=== PATIENT | female | born 1990 | race Caucasian/White ===

== ENCOUNTER 2020-06-05 16:09 | Outpatient (RCR) | payer OTHER, SELFPAY ==
[2020-05-30 09:48] LABS: Beta HCG Quantitative 280.14 mIU/ML
== END 2020-08-28 23:59 | disposition home or self-care (01) ==
LOC: ANHLAB 16:09
PROVIDERS: PCP Nurse Practitioner Family; Visit Provider Obstetrics & Gynecology
DX: O02.1 Missed abortion (principal); Z3A.00 Weeks of gestation of pregnancy not specified
CPT/HCPCS: 36415; 84702

== ENCOUNTER 2020-06-12 12:33 | Outpatient (CLI) | payer OTHER, SELFPAY ==
--- NOTE | ~2020-06-12 | US_ITS ---
EXAMINATION: US OB <=14 wk fetus w TV DATE: 06/12/2020 13:53 INDICATION: History of spontaneous . TECHNIQUE: Real-time transabdominal and transvaginal pelvic ultrasound was performed. COMPARISON: None. FINDINGS: TRANSABDOMINAL ULTRASOUND: The uterus measures 9.8 x 6.2 x 4.4 cm. TRANSVAGINAL ULTRASOUND: There is an intrauterine gestational sac. A yolk sac is identified. The fet al crown rump length measures 6 mm, which correlates with an estimated gestational age of 6 weeks and 2 day(s) (+/-) 4 day(s). heart motion is identified measuring 110 beats per minute (bpm) by M- mode Doppler. There is a small subchorionic hematoma. The right ovary measures 3.8 x 3.1 x 2.2 cm. Th e left ovary measures 2.4 x 2.8 x 1.5 cm. There is trace free fluid in the pelvis. IMPRESSION: 1. Single living intrauterine gestation with estimated date of delivery of 02/03/2021. 2. Small subchorionic hematoma. Reviewed, dictated and finalized at location B. IMPRESSION: 1. Single living intrauterine gestation with estimated date of delivery of 01/16. 2. Small subchorionic hematoma.
== END 2020-06-12 12:34 | disposition home or self-care (01) ==
PROVIDERS: PCP Nurse Practitioner Family; Visit Provider Obstetrics & Gynecology
DX: O26.21 Pregnancy care for patient with recurrent pregnancy loss, first trimester (principal); O36.8911 Maternal care for other specified fetal problems, first trimester, fetus 1
CPT/HCPCS: 76801; 76817

== ENCOUNTER 2020-06-27 09:42 | Outpatient (CLI) | payer OTHER, SELFPAY ==
--- NOTE | ~2020-06-27 | US_ITS ---
EXAMINATION: US OB <= 14 weeks fetus DATE: 06/27/2020 10:24 INDICATION: Subchorionic hematoma TECHNIQUE: Real-time pelvic transabdominal and transvaginal ultrasound was performed. COMPARISON: 06/12/2020 FINDINGS: The uterus measures 10.4 x 4.5 x 7.9 cm. There is an intrauterine gestational sac. A small subchorionic hematoma has decreased in size measuring up to 1.2 cm, previously 2.7 cm. A yolk sac is identified. heart motion is identified measuring 159 beats per minute (bpm) by M-mode Doppler. The crown rump length measures 1.7 cm , which correlates with an estimated gestational age of 8 weeks and 0 day(s) (+/-) 5 day(s). The left ovary is not visualized however no left adnexal abnormality is seen. The right ovary measure s 3.6 x 2.3 x 2.7 cm. There is normal vascular flow in the right ovary. There is no free fluid in the pelvis. IMPRESSION: 1. Live intrauterine with an estimated gestational age of 8 weeks and 0 day(s) (+/-) 5 day( s) and an estimated delivery date of 02/06/2021. 2. Small subchorionic hematoma with interval decrease in size. Reviewed, dictated and finalized at location B. IMPRESSION: 1. Live intrauterine with an estimated gestational age of 8 weeks and 0 day(s) (+/-) 5 day(s) and an estimated delivery date of 02/06/2021. 2. Small subchorionic hematoma with interval decrease in size.
== END 2020-06-27 09:43 | disposition home or self-care (01) ==
LOC: ANHIMG 09:45
PROVIDERS: PCP Nurse Practitioner Family; Visit Provider Obstetrics & Gynecology
DX: O99.411 Diseases of the circulatory system complicating pregnancy, first trimester (principal); Z3A.08 8 weeks gestation of pregnancy
CPT/HCPCS: 76801

== ENCOUNTER 2020-07-22 13:14 | Outpatient (CLI) | payer OTHER, SELFPAY ==
--- NOTE | ~2020-07-22 | US_ITS ---
EXAMINATION: US OB <= 14 weeks fetus DATE: 07/22/2020 13:56 INDICATION: Subchorionic hematoma follow-up, first trimester TECHNIQUE: Real-time pelvic transabdominal and transvaginal ultrasound was performed. COMPARISON: 06/27/2020 FINDINGS: The uterus measures 14.3 x 6.6 x 9.7 cm. No persistent subchorionic hematoma is identified. heart motion is identified measuring 155 beats per minute (bpm) by M-mode Doppler. The c rown rump length measures 5.8 cm , which correlates with an estimated gestational age of 12 weeks and 2 day(s) (+/-) 8 day(s). The ovaries are not visualized however no adnexal abnormality is seen. There is no free fluid in the pelvis. IMPRESSION: 1. Live intrauterine with an estimated gestational age of 12 weeks and 2 day(s) (+/-) 8 day (s) and an estimated delivery date of 02/01/2021. 2. No persistent subchorionic hematoma identified. Reviewed, dictated and finalized at location A. IMPRESSION: 1. Live intrauterine with an estimated gestational age of 12 weeks an d 2 day(s) (+/-) 8 day(s) and an estimated delivery date of 02/01/2021. 2. No persistent subchorionic hematoma identified.
== END 2020-07-22 13:15 | disposition home or self-care (01) ==
PROVIDERS: PCP Nurse Practitioner Family; Visit Provider Obstetrics & Gynecology Gynecology
DX: O36.8910 Maternal care for other specified fetal problems, first trimester, not applicable or unspecified (principal); Z3A.12 12 weeks gestation of pregnancy
CPT/HCPCS: 76801

== ENCOUNTER 2020-08-01 12:12 | Outpatient (CLI) | payer OTHER, SELFPAY ==
[2020-08-01 12:34] LABS: Basophils Percent Auto 0.3 % (0.2-1.2); Eosinophils Absolute Auto 0.2 K/mm3 (0-0.3); Eosinophils Percent Auto 2.7 % (0-4.4); Hematocrit 32.9 % (37.0-47.0); Hemoglobin 11.6 g/dL (12.0-15.0); Immature Granulocyte Absolute 0.03 K/mm3 (0.00-0.031); Immature Granulocyte Percent A 0.5 % (0-0.5); Lymphocytes Percent Auto 27.3 % (18.3-44.2); Mean Corpuscular HGB Conc 35.3 g/dl (32-36); Mean Corpuscular Hemoglobin 30.1 pg (26-34); Mean Corpuscular Volume 85.5 fl (80-100); Mean Platelet Volume 10.3 fl (7.4-10.4); Monocytes Absolute Auto 0.4 K/mm3 (0.1-0.6); Monocytes Percent Auto 6.1 % (2.6-8.5); Neutrophils Absolute Auto 4.2 K/mm3 (1.3-6.7); Neutrophils Percent Auto 63.1 % (45.5-73.1); Platelet Count Result 232 k/mm3 (150-375); Red Blood Count 3.85 M/mm3 (4.2-5.4); Red Cell Distribution Width 11.9 % (11.5-14.5); White Blood Count 6.6 K/mm3 (4.5-10.0)
[2020-08-01 13:28] LABS: HIV 1/2 Ab P24 Ag Result Negative (Negative)
[2020-08-01 13:34] LABS: Vitamin D 25 Hydroxy 38.9 ng/mL
[2020-08-01 13:49] LABS: Hepatitis B Surface Antigen Negative (Negative); Rubella IgG Antibody 18.6 IU/ML
[2020-08-04 08:22] LABS: Rapid Plasma Reagin Non-Reactive (NonReactive)
== END 2020-08-01 12:13 | disposition home or self-care (01) ==
PROVIDERS: PCP Nurse Practitioner Family; Visit Provider Obstetrics & Gynecology
DX: Z36.9 Encounter for antenatal screening, unspecified (principal)
CPT/HCPCS: 36415; 82306; 85025; 86592; 86703; 86762; 86850; 86900; 86901; 87340; G0432

== ENCOUNTER 2020-09-04 14:04 | Outpatient (CLI) | payer OTHER, SELFPAY ==
--- NOTE | ~2020-09-04 | US_ITS ---
EXAMINATION: US OB /maternal detail DATE: 09/04/2020 15:02 INDICATION: Assess anatomy during second trimester . TECHNIQUE: Multiple obstetric sonographic images performed. FINDINGS: There is a single living fetus in vertex presentation. The placenta is posterior and not low-lying w ith caudal margin 3.8 cm from the internal cervical os. Amniotic fluid volume is subjectively normal. heart rate of 141 beats per minute. The following anatomy was identified as normal: Ventricles, choroid plexus, falx and cava septum pellucidum Cerebellum and cisterna magna Nuchal fold Thoracic and lumbar spine. Cervical spine is suboptimally visualized. Normal left ventricular outflow tract view. The four-chamber, three-vessel and right ventricular outf low tract views are also suboptimal. Diaphragm Stomach Kidneys Bladder 3 vessel cord and cord insertion Bilateral upper and lower extremities including hands and feet The following biometric data were obtained: BPD: 4.2 cm -> 18 weeks 5 days Head circumference: 15.5 cm -> 18 weeks 3 days Abdominal circumference: 13.1 cm -> 18 weeks 4 days Femur length: 2.8 cm -> 18 weeks 5 days These measurements are concordant. Head circumference to abdominal circumference ratio: 1.19 (normal range 1.09-1.27). Estimated weight: 250 g (+/-) 37 g. or 9 oz. (+/-) 1 oz. IMPRESSION: 1. Single living fetus with vertex presentation with heart rate of 141 bpm. 2. Gestational age by ultrasound of 18 weeks 4 day(s) (+/-) 1 week 2 day(s) with ultrasound estimat ed date of delivery (KENN) of 02/01/2021. Estimated weight is 68th percentile by Hadlock criteria when 02/03/2021 is used as the KENN. Please correlate with clinical information or earlier ultrasounds for most accurate KENN. 3. Suboptimal cervical spine and heart views in an otherwise normal anatomic survey. Reviewed, dictated and finalized at [facility]. R SERVICES TEAM LEADER IMPRESSION: 1. Single living fetus with vertex presentation with heart rate of 141 b pm. 2. Gestational age by ultrasound of 18 weeks 4 day(s) (+/-) 1 week 2 day(s) w ith ultrasound estimated date of delivery (KENN) of 02/01/2021. Estimated w eight is 68th percentile by Hadlock criteria when 02/03/2021 is used as the KENN. Please correlate with clinical information or earlier ultrasounds for most acc urate KENN. 3. Suboptimal cervical spine and heart views in an otherwise normal anato david survey.
== END 2020-09-04 14:05 | disposition home or self-care (01) ==
PROVIDERS: PCP Nurse Practitioner Family; Visit Provider Obstetrics & Gynecology
DX: Z34.92 Encounter for supervision of normal pregnancy, unspecified, second trimester (principal); Z3A.18 18 weeks gestation of pregnancy
CPT/HCPCS: 76805

== ENCOUNTER 2020-10-03 10:20 | Outpatient (CLI) | payer OTHER, SELFPAY ==
--- NOTE | ~2020-10-03 | US_ITS ---
EXAMINATION: US OB follow up EXAM DATE: 10/03/2020 11:02 INDICATION: Anatomy follow-up. 2nd trimester. TECHNIQUE: Pelvic obstetrical transabdominal sonogram was performed by a technologist. There are mu ltiple grayscale and Doppler images available for interpretation. Comparison is made to prior examina tion from 09/04/2020. FINDINGS: There is a single fetus identified in vertex presentation with a heart rate of 178 beats pe r minute. The placenta is located in the posterior position. There is no sonographic evidence of ret roplacental hemorrhage identified. The amniotic fluid index is 9.7 centimeters, lower limits of emely l (The 5th -- 95th percentile range is 9.7-21.6 for 22 weeks gestation age.) BIOMETRIC DATA: Biparietal diameter (BPD): 5.6cm ----------------> 23 weeks 0 days. Head circumference (HC): 20.3 cm cm ----------------> 22 weeks 3 days. Abdominal circumference (AC): 17.7 cm ----------> 22 weeks 4 days. Femur length (FL): 3.9 cm --------------------------> 22 weeks 4 days. These measurements are concordant. HC/AC ratio is 1.15 (The 5th -- 95th percentile range is 1.05-1.22. Estimated weight is 516 g +/- 77 g. This is the 51st percentile when the currently reported cl inical gestation age 22 weeks 3 days, clinical estimated date of delivery (KENN-OPE) 02/03 is used. Fet al estimated gestational age based on measurements from this exam is 22 weeks 5 days, with an estimat ed date of delivery (KENN-AUA) 02/01. The heart and spine are sonographically normal. This completes the anatomic survey. IMPRESSION: 1. Single fetus in vertex presentation with heart rate 178 beats per minute. 2. Estimated weight of 516 grams, 51st percentile using the currently reported clinical gestat ion age of 22 weeks 3 days, KENN(OPE) 02/03. 3. Amniotic fluid index 9.7 cm, lower limits of normal. 4. Sonographically normal heart and spine. Reviewed, dictated and finalized at location A. ROAD SHOP INSPECTOR IMPRESSION: 1. Single fetus in vertex presentation with heart rate 178 beats per minute. 2. Estimated weight of 516 grams, 51st percentile using the currently re ported clinical gestation age of 22 weeks 3 days, KENN(OPE) 02/03. 3. Amniotic fluid index 9.7 cm, lower limits of normal. 4. Sonographically normal heart and spine.
== END 2020-10-03 10:21 | disposition home or self-care (01) ==
PROVIDERS: PCP Nurse Practitioner Family; Visit Provider Obstetrics & Gynecology
DX: Z34.92 Encounter for supervision of normal pregnancy, unspecified, second trimester (principal); Z3A.22 22 weeks gestation of pregnancy
CPT/HCPCS: 76816

== ENCOUNTER 2020-10-23 10:41 | Outpatient (CLI) | payer OTHER, SELFPAY ==
--- NOTE | ~2020-10-23 | US_ITS ---
EXAMINATION: US OB follow up EXAM DATE: 10/23/2020 11:10 INDICATION: Decreased lower limit of amniotic fluid . 2nd trimester. TECHNIQUE: Pelvic obstetrical transabdominal sonogram was performed by a technologist. There are mu ltiple grayscale and Doppler images available for interpretation. Comparison is made to prior examina tion from 10/03/2020. FINDINGS: There is a single fetus identified in breech presentation with a heart rate of 147 beats pe r minute. The placenta is located in the posterior position. There is no sonographic evidence of ret roplacental hemorrhage identified. The amniotic fluid index is 14.8 centimeters, which is normal. BIOMETRIC DATA: Biparietal diameter (BPD): 6.4 cm ----------------> 26 weeks 0 days. Head circumference (HC): 22.1 cm ----------------> 24 weeks 1 day. Abdominal circumference (AC): 20.1 cm ----------> 24 weeks 5 days. Femur length (FL): 4.2 cm --------------------------> 23 weeks 5 days. These measurements are discordant, with FL/BPD low at 65.6 (The 5th -- 95th percentile range is 71.0- 87.0). HC/AC ratio is 1.10 (The 5th -- 95th percentile range is 1.04-1.22. Estimated weight is 688 g +/- 103 g. This is the 10th percentile when the currently reported c linical gestation age 25 weeks 2 days, clinical estimated date of delivery (KENN-OPE) 02/03 is used. Fe arron estimated gestational age based on measurements from this exam is 24 weeks 5 days, with an estima maria c date of delivery (KENN-AUA) 02/07. IMPRESSION: 1. Single fetus in breech presentation with heart rate 147 beats per minute. 2. Estimated weight of 688 grams, 10th percentile using the currently reported clinical gestat ion age of 25 weeks 2 days, KENN(OPE) 02/03/2021. 3. Discordant low FL/BPD ratio. 4. Normal JEFFY 14.8 cm. Reviewed, dictated and finalized at location A. DEGRADATION ANALYST IMPRESSION: 1. Single fetus in breech presentation with heart rate 147 beats per minute. 2. Estimated weight of 688 grams, 10th percentile using the currently re ported clinical gestation age of 25 weeks 2 days, KENN(OPE) 02/03/2021. 3. Discordant low FL/BPD ratio. 4. Normal JEFFY 14.8 cm.
== END 2020-10-23 10:42 | disposition home or self-care (01) ==
PROVIDERS: PCP Nurse Practitioner Family; Visit Provider Obstetrics & Gynecology
DX: O41.00X0 Oligohydramnios, unspecified trimester, not applicable or unspecified (principal); Z3A.25 25 weeks gestation of pregnancy
CPT/HCPCS: 76816

== ENCOUNTER 2020-12-06 09:12 | Outpatient (RCR) | payer OTHER, SELFPAY ==
[2020-12-04 10:08] LABS: Hematocrit 33.6 % (37.0-47.0); Hemoglobin 11.4 g/dL (12.0-15.0)
[2020-12-04 10:20] LABS: Glucose 1 Hour PP 50gm Dose 133 mg/dL
[2020-12-04 11:02] LABS: HIV 1/2 Ab P24 Ag Result Negative (Negative)
[2020-12-04 11:03] LABS: Vitamin D 25 Hydroxy 41.6 ng/mL
[2020-12-06] MEDS: RHO(D) IMMUNE GLOBULIN 300 MCG SYRINGE IM (15:20)
== END 2020-12-06 09:13 | disposition home or self-care (01) ==
LOC: ANHLAB 09:12
PROVIDERS: PCP Nurse Practitioner Family; Visit Provider Obstetrics & Gynecology
DX: Z29.13 Encounter for prophylactic Rho(D) immune globulin (principal); Z11.4 Encounter for screening for human immunodeficiency virus [HIV]; O36.0920 Maternal care for other rhesus isoimmunization, second trimester, not applicable or unspecified; Z3A.00 Weeks of gestation of pregnancy not specified
CPT/HCPCS: 36415; 82306; 82947; 85014; 85018; 85461; 86703; 90384; 96372; G0432; J2790

== ENCOUNTER 2021-01-14 16:15 | Outpatient (CLI) | payer OTHER, SELFPAY ==
--- NOTE | ~2021-01-14 | US_ITS ---
EXAMINATION: US OB follow up DATE: 01/14/2021 16:58 INDICATION: Large for gestational age. TECHNIQUE: Real-time ultrasound of the pelvis was performed. COMPARISON: Ultrasound 10/23/2020, 06/12/2020 FINDINGS: There is a single living fetus in vertex presentation. The placenta is fundal. heart rate is 1 68 beats per minute (bpm). The amniotic fluid index is 10.3 cm, which is normal. The following biometric data were obtained: Biparietal diameter (BPD): 9.1 cm; head circumference (HC): 33.8 cm; abdominal circumference (AC): 32 .9 cm; femur length (FL): 7.3 cm. These measurements are concordant. Estimated weight is 3137 g +/- 471 g, which correlates with 58th percentile when 02/03/21 is use d as estimated date of delivery. As single measurements, these parameters are each equal to the following estimated gestational ages w ith ranges of +/- 2 standard deviations: BPD: 36 weeks 5 days (33 weeks 4 days - 40 weeks 0 days). HC: 38 weeks 5 days (36 weeks 0 days - 41 weeks 3 days). AC: 36 weeks 6 days (33 weeks 6 days - 39 weeks 6 days). FL: 37 weeks 3 days (34 weeks 2 days - 40 weeks 3 days). estimated gestational age based solely on measurements from this exam is 37 weeks 3 days +/- 2 weeks 4 days. IMPRESSION: 1. Single living fetus in vertex presentation. 2. Estimated weight is 3137 g +/- 471 g, which correlates with 58th percentile when 02/03/21 is used as estimated date of delivery. This date was set by ultrasound on 06/12/20. Reviewed, dictated and finalized at location A. IMPRESSION: 1. Single living fetus in vertex presentation. 2. Estimated weight is 3137 g +/- 471 g, which correlates with 58th perc entile when 02/03/21 is used as estimated date of delivery. This date was set by ultrasound on 06/12/20.
== END 2021-01-14 16:16 | disposition home or self-care (01) ==
PROVIDERS: PCP Nurse Practitioner Family; Visit Provider Obstetrics & Gynecology
DX: O36.63X1 Maternal care for excessive fetal growth, third trimester, fetus 1 (principal); Z3A.37 37 weeks gestation of pregnancy
CPT/HCPCS: 76816

== ENCOUNTER 2021-01-25 22:49 | Inpatient (IN) | payer OTHER, SELFPAY ==
[2021-01-25] MEDS: LACTATED RINGERS 1,000 ML 125 ML IV CONT (23:51)
[2021-01-25 23:54] VITALS: BP 138/110; PULSE 82
[2021-01-26] VITALS (45 sets, daily range): BP systolic 101–180; BP diastolic 57–105; PULSE 76–149; RESP 16–22; TEMP 36.3–36.9; O2SAT 96–100; BMI 32.1
[2021-01-26 00:02] LABS: Basophils Percent Auto 0.2 % (0.2-1.2); Eosinophils Absolute Auto 0.1 K/mm3 (0-0.3); Eosinophils Percent Auto 0.7 % (0-4.4); Hematocrit 35.7 % (37.0-47.0); Immature Granulocyte Absolute 0.04 K/mm3 (0.00-0.031); Immature Granulocyte Percent A 0.5 % (0-0.5); Lymphocytes Absolute Auto 2.11 K/mm3 (0.9-3.2); Lymphocytes Percent Auto 24.5 % (18.3-44.2); Mean Corpuscular HGB Conc 33.6 g/dl (32-36); Mean Corpuscular Hemoglobin 28.9 pg (26-34); Mean Platelet Volume 11.1 fl (7.4-10.4); Monocytes Absolute Auto 0.6 K/mm3 (0.1-0.6); Monocytes Percent Auto 7.4 % (2.6-8.5); Neutrophils Absolute Auto 5.8 K/mm3 (1.3-6.7); Neutrophils Percent Auto 66.7 % (45.5-73.1); Platelet Count Result 208 k/mm3 (150-375); Red Blood Count 4.15 M/mm3 (4.2-5.4); Red Cell Distribution Width 13.1 % (11.5-14.5); White Blood Count 8.6 K/mm3 (4.5-10.0)
--- NOTE | 2021-01-26 00:20 | WPDANESEPPF ---
Anes - Initial Pre Proc Eval Procedure: labor epidural Date/Time: 01/26/21 00:20 Surgeon: Holden Santiago MD Pre Op Diagnosis: labor pain Pre Op Diagnosis: CTX Patient Data Age: 30 Gender: F Height: Weight: Last Vital Signs Pulse 89 01/26/21 00:16 BP 142/80 H 01/26/21 00:16 Pulse Ox 98 01/26/21 00:16 Allergies Allergy/AdvReac Type Severity Reaction Status Date / Time No Known Allergies Allergy Verified 10/21/18 13:37 Laboratory Tests 01/25/21 01/25/21 23:53 23:53 WBC 8.6 K/mm3 K/mm3 (4.5-10.0) RBC 4.15 M/mm3 L M/mm3 (4.2-5.4) Hgb 12.0 g/dL g/dL (12.0-15.0) Hct 35.7 % L % (37.0-47.0) MCV 86.0 fl fl (80-100) MCH 28.9 pg pg (26-34) MCHC 33.6 g/dl g/dl (32-36) RDW 13.1 % % (11.5-14.5) Plt Count 208 k/mm3 k/mm3 (150-375) MPV 11.1 fl H fl (7.4-10.4) Immature Gran % (Auto) 0.5 % % (0-0.5) Neut % (Auto) 66.7 % % (45.5-73.1) Lymph % (Auto) 24.5 % % (18.3-44.2) Hernando % (Auto) 7.4 % % (2.6-8.5) Eos % (Auto) 0.7 % % (0-4.4) Baso % (Auto) 0.2 % % (0.2-1.2) Lymph # (Auto) 2.11 K/mm3 K/mm3 (0.9-3.2) Hernando # (Auto) 0.6 K/mm3 K/mm3 (0.1-0.6) Eos # (Auto) 0.1 K/mm3 K/mm3 (0-0.3) Baso # (Auto) 0.0 K/mm3 K/mm3 (0.0-0.1) Abs Immat Gran (auto) 0.04 K/mm3 H K/mm3 (0.00-0.031) Absolute Neuts (auto) 5.8 K/mm3 K/mm3 (1.3-6.7) Absolute Nucleated RBC 0.0 K/mm3 K/mm3 (0.0-0.012) Nucleated RBC % 0.0 % % (0.0-0.2) RPR Pending Patient hx anesthesia problems: none Family hx anesthesia problems: none Anes - Eval Final PreProcedure Day of Procedure 01/26/21 00:20 Patient weight: obese ASA classification: II Anesthesia type and monitoring: regional epidural Informed Consent: The patient's anesthetic plan and its attendant risks and benefits were discussed with the patient/family/POA. Questions were solicited and answers provided to the satisfaction of the patient/family/POA.
[2021-01-26] MEDS: LACTATED RINGERS 1,000 ML 125 ML IV CONT (00:54)
[2021-01-26] MEDS: OXYTOCIN 30 UNITS/NS 500 ML 30 UNITS/500 ML BAG 999 UNITS IV CONT (01:23)
--- NOTE | 2021-01-26 01:38 | P.HP_ITS ---
Obstetrics - Admit Note Admission Note: Complete and pushing. record reviewed. No pertinent additions to the history and/or any subsequent changes in the physical findings that are not consistent with the expected course of the were found. Additions to the history and/or subsequent changes in the physical findings foll ow. None.
--- NOTE | 2021-01-26 01:40 | PM.OBPRVD ---
OB - Delivery Note Procedure Delivery date: 01/26/21 Procedure: Intrapartal events: Acceleration and Deceleration Induction method: none Delivery monitor: external FHT and external uterine Route of delivery: Laceration Description: Perineal - 2nd Degree Delivery repair: vicryl Specimen: No Quantitative Blood Loss (ml): 130 Anesthesia type: Epidural Disposition: floor Baby Date of : 01/26/21 Time of : 01:19 Weeks of gestation at delivery: 38 gender: Female Weight (pounds): 7 Weight (ounces): 10 presentation: vertex position: Left Occiput Anterior Placenta delivery description: Spontaneous cord vessel description: 3 Vessels, Nuchal Cord (x2), Tight and Clamped/Cut score one minute: 4 score five minutes: 8 Narrative: nuchal x2 tight nonreducible delivered through reduced at peritinuem.
[2021-01-26] MEDS: OXYTOCIN 10 UNITS/ML VIAL (02:10)
[2021-01-26] MEDS: BENZOCAINE 20% AER SPR (*SP) 56 GM CAN 1 SPRAY TOPICAL (03:43)
[2021-01-26] MEDS: WITCH HAZEL 40 PADS 1 PAD TOPICAL (03:43)
[2021-01-26] MEDS: IBUPROFEN 600 MG TABLET PO ×3 (05:34→21:00)
[2021-01-26 07:44] LABS: Rapid Plasma Reagin Non-Reactive (NonReactive)
[2021-01-26] MEDS: MULTIVIT/MIN/PREN/FOL AC/IRON TABLET 1 TAB PO (09:10)
--- NOTE | 2021-01-26 16:29 | PC.NURSE ---
[id number] visited with mother; she reports baby fed about 1 hour ago. Had questions about latch on. She reports nipple pain throughout each feeding with her first baby, and was the reason she stopped breast feeding; desires for this experience to be different. Baby sleeping now. Mother encouraged to call for nurse assistance at next feeding to evaluate baby's latch and assist as needed. Mother reports she is feeling pinchy with baby's nursing, and nipple has a line across after the feeding. Nurse reviewed with her positioning, use of c-hold and nose to nipple latch on technique, waiting for infant to open her mouth wide so that her tongue is down. Also suggested to possibly use football position instead of cross-cradle. Nurse explained to mother how to gently adjust to deeper latch while on the breast to help her latch be deeper. Mother attentive, voiced understanding. Again, mother encouraged to call for nurse to assist at next feeding, and then f/u with LC tomorrow. Mother agreed.
[2021-01-27 00:28] VITALS: BP 110/66; PULSE 76; RESP 16; TEMP 36.6; O2SAT 98
[2021-01-27 03:52] VITALS: BP 107/75; PULSE 78; RESP 18; TEMP 36.6; O2SAT 97
--- NOTE | 2021-01-27 07:34 | WPDANLDPN2 ---
Anes-Prog Note L&D Date/Time: 01/27/21 07:34 Comfortable throughout: labor and delivery Neuraxial method: epidural Epidural/Spinal procedure site: clean & non-tender Neuro status: Neuro function grossly intact. Cardiovascular status: normal Respiratory status: normal Airway patency: baseline Mental status: baseline Post-Op hydration status: normal Vital Signs: Last Vital Signs Temp 36.6 C 01/27/21 03:52 Pulse 78 01/27/21 03:52 Resp 18 01/27/21 03:52 BP 107/75 01/27/21 03:52 Pulse Ox 97 01/27/21 03:52 Pain score (VAS): 10/26 Post-procedural complaints: none Patient feedback: Patient satisfied with anesthetic care.
--- NOTE | 2021-01-27 07:41 | PM.OBPNVD ---
OB - PN: Subj Subjective Date/time seen: 01/27/21 07:41 Patient comments: no complaints and pain well controlled baby status: doing well OB - PN: Obj Data Labs CBC & Chem 7: 01/25/21 23:53 Labs: Laboratory Results - last 24 hr 01/25/21 01/27/21 23:53 05:50 RPR Non-reactive Blood Type B Negative Antibody Screen TNP Screen Negative Baby's Blood Type Ab pos Baby's ISSAC Positive Doses of RhIg Required 1 OB - PN A/P Plan day: 1 Plan: routine care, discharge home and other (unsure bc plan) Time Spent With Patient Time: Total time spent is greater than 50% in coordination of care (as documented) at patient's floor/unit and/or counseling patient: Exam : Bimanual exam- vagina & uterus: other (Uterus firm, nt @U)
--- NOTE | 2021-01-27 08:20 | PC.NURSE ---
Consult with pt., mother reports she has pain with latch and during feeding. Mother discontinued first child due to nipple discomfort. Requested mother call out next feeding for assist. Nipple care reviewed of lanolin after each feeding and warm compresses several times per day.
[2021-01-27 08:50] VITALS: BP 107/65; PULSE 75; RESP 16; TEMP 36.9; O2SAT 98
--- NOTE | 2021-01-27 09:15 | PC.NURSE ---
Mother called out for assist with feeding due to pain with feeding. Both nipples are reddened skin is intact. Reviewed infant feeding cues, frequencies, duration of feedings, feeding elimination flow sheet, and signs of adequate intake. Demonstrated stimulation techniques to wake for feeding. Assisted with to breast. Reviewed positioning/alignment in cross cradle, holding breast in U hold and guided asymmetrical latch on. was able to latch correctly with first attempt. nursed eagerly, with steady draws and frequent swallowing noted. Reviewed signs of a correct latch, effective nursing and suck swallow ratio. Mother quickly reported she could feel was latched more deeply than previous feeding. Suggested mother stimulate while feeding to keep awake and nursing effectively to stimulate supply and assist with maintaining deep latch. Demonstrated how to adjust latch more deeply while feeding. Mother is feeding as required and waking infant to feed if needed. has had at least 8 effective feedings in the past 24 hours, and is currently meeting outcomes for weight, output, jaundice and feeding frequencies. Mother states she feels confident to continue effective at home. Reviewed transition to breast milk, signs of adequate intake, and engorgement/relief. Instructed to call ICP if intake/output less than required. Reviewed regular medications mother is taking. Information provided per Keisha. Reviewed community resources on the [facility] website and in the Mom/Baby guide. Information on outpatient services provided. Mother has no further questions at this time.
[2021-01-27 10:03] LABS: Hematocrit 30.9 % (37.0-47.0); Hemoglobin 10.3 g/dL (12.0-15.0)
[2021-01-27] MEDS: MULTIVIT/MIN/PREN/FOL AC/IRON TABLET 1 TAB PO (10:03)
[2021-01-27] MEDS: IBUPROFEN 600 MG TABLET PO (10:03)
--- NOTE | 2021-01-27 11:00 | PC.NURSE ---
Patient instructed on viewing the discharge video Mother & Baby Care, The First Two Weeks . Patient was given the opportunity and encouraged to ask questions. Patient verbalized understanding of information shared and has been given the mother/baby guide for home reference.
[2021-01-27] MEDS: RHO(D) IMMUNE GLOBULIN 300 MCG/2 ML SYRINGE IM (11:29)
[2021-01-30 11:24] VITALS: BP 115/76; PULSE 78; RESP 18; TEMP 36.5; O2SAT 100
--- NOTE | 2021-02-23 08:14 | PM.OBDSVD ---
DS: Admitting Diagnosis Admitting Diagnosis Admitting Diagnosis: labor DS: Discharge Diagnosis Discharge Diagnosis (1) (normal spontaneous vaginal delivery): Code(s): O80 - Encounter for full-term uncomplicated delivery Status: Acute OB - DS: Summary OB Procedures : Ultrasound OB Procedures Intrapartum: Spontaneous Vag Delivery OB Procedures: : None Peripartum Data Infant Delivery Method: Natural Vaginal Laceration Description: Perineal - 2nd Degree complications: none Time Spent with Patient Time attestation: Total time spent providing and/or coordinating discharge services: Discharge Plan Discharge Attending physician on discharge: Holden Santiago Consulting providers: Nathanael Stevenson Discharging Clinician: Abeba Hart Anticipated Discharge Date/Time: 01/27/21 07:42 Patient Disposition: Home, Self-Care Activity: may shower and pelvic rest Diet: regular Discharge Instructions: Education: Mom and Baby Guide and Preeclampsia Handout Given to: Mother Follow-Up: Call your delivering provider's office for an appointment to be seen in: 6 Weeks Mom and baby should come to the [facility] for the follow-up appointment. Appointment Date/Time: January 30, 2021 at 11:00 am What to expect at your follow-up visit: Physical Assessment Call [phone] if you are unable to keep your appointment time. BREAST CARE: * Wear a snug supportive bra. * For engorgement discomfort: Breast Feeding: * Apply warm moist washcloths * Express milk as needed to relieve engorgement * Wear loose clothing * For sore nipples: * Identify correct latch-on * Apply warm moist washcloths before and after nursing * Air dry nipples after nursing * May apply Lansinoh cream to nipples EPISIOTOMY/PERINEAL CARE: * Until bleeding stops, use your arabella bottle after urinating * Change your pad frequently throughout the day * You may take sitz baths several times a day (fill your bathtub with warm water and soak for 20 minutes.) Do NOT bathe in the water * No tub baths until seen by your physician - You may shower ACTIVITY: * Rest as much as possible. * Do not exercise or lift anything heavier than your baby (such as laundry or other children.) * Avoid stairs or driving as much as possible. * Do not put anything into the vagina. No douching, tampons, or sexual activity until seen by physician. NOTIFY PHYSICIAN IF YOU HAVE ANY QUESTIONS OR IF ANY OF THE FOLLOWING SYMPTOMS OCCUR: * If your episiotomy becomes red, swollen, or more painful than what you have experienced in the hospital. * If your vaginal bleeding becomes foul smelling. * If your vaginal bleeding becomes more heavy than a period or if your bleeding changes from pink to bright red. However, you may pass an occasional walnut-sized clot once or twice for the first week . * If you experience a sharp, shooting pain in you calves. * If you discover a hard, reddened area on your breast or if you experience flu-like symptoms. DIET: * Eat regular, well-balanced meals. * Drink plenty of fluids daily. If , drink to thirst. Stand Alone Forms: General Discharge Information Follow-up/Referrals: Holden Santiago MD [Physician] - 6 Weeks Discharge Medications: Continued montelukast 10 mg tablet 10 mg PO DAILY RF: 0 ergocalciferol (vitamin D2) 1,250 mcg (50,000 unit) capsule 1,250 mcg PO DAILY RF: 0 400 mcg Tablet,Chewable 1 tablet PO DAILY RF: 0 Date of admission: 01/25/21 22:49 Primary Care Provider: Chelly,Eugenie Ryder Admitting Provider: Holden Santiago Attending physician on admission: Abeba Hart Condition: Stable
== END 2021-01-27 12:15 | disposition home or self-care (01) | DRG 560 ==
LOC: ANHLDR 23:57 → ANHOB2 01-27 07:43 → ANHLDR 01-28 13:50 → ANHOB2 01-28 13:50
PROVIDERS: Admitting Provider Obstetrics & Gynecology; PCP Nurse Practitioner Family; Visit Provider Obstetrics & Gynecology Gynecology
DX: O69.1XX0 Labor and delivery complicated by cord around neck, with compression, not applicable or unspecified (principal); O70.1 Second degree perineal laceration during delivery; Z3A.38 38 weeks gestation of pregnancy; Z37.0 Single live birth
CPT/HCPCS: 36415; 85014; 85018; 85025; 85461; 86592; 86850; 86880; 86900; 86901; 86902; 90384; A9270; J2590; J2790; J2795; J7120

== ENCOUNTER 2023-04-14 11:02 | Outpatient (RCR) | payer OTHER, SELFPAY ==
[2023-04-12 12:39] LABS: Beta HCG Quantitative 140.48 mIU/ML
[2023-04-14 13:00] LABS: Beta HCG Quantitative 256.19 mIU/ML
== END 2023-07-11 23:59 | disposition home or self-care (01) ==
LOC: ANHLAB 11:02
PROVIDERS: PCP Nurse Practitioner Family; Visit Provider Obstetrics & Gynecology Gynecology
DX: O26.21 Pregnancy care for patient with recurrent pregnancy loss, first trimester (principal); Z3A.00 Weeks of gestation of pregnancy not specified
CPT/HCPCS: 36415; 84702

== ENCOUNTER 2023-04-18 10:37 | Outpatient (CLI) | payer OTHER, SELFPAY | END 2023-04-18 10:38 | disposition home or self-care (01) | LOC: ANHLAB 10:39 | PROVIDERS: PCP Nurse Practitioner Family; Visit Provider Obstetrics & Gynecology Gynecology | DX: O26.21 Pregnancy care for patient with recurrent pregnancy loss, first trimester (principal); Z3A.00 Weeks of gestation of pregnancy not specified | CPT/HCPCS: 36415; 84702 ==

== ENCOUNTER 2023-04-25 10:35 | Outpatient (CLI) | payer OTHER, SELFPAY ==
--- NOTE | ~2023-04-25 | US_ITS ---
Pelvic ultrasound. Clinical History: First trimester , spotting, uncertain dates Technique: Realtime transabdominal and transvaginal scanning of the pelvis was performed. Color flow Doppler and Doppler spectral analysis were performed. Findings: The uterus is anteverted. The endometrial stripe has a thickness of 17 mm. There is a poss ible early intrauterine gestational sac, with average sac diameter of 4 mm. No pole or yolk sac seen.. The right ovary measures 3.6 x 1.7 x 2.6 cm. No significant right ovarian or adnexal mass is seen. The left ovary measures 3.9 x 1.9 x 1.6 cm. No significant left ovarian or adnexal mass is seen. There is no evidence of free fluid in the cul de sac. Impression: Possible early intrauterine gestational sac with average sac diameter 4 mm. No pole or yolk sac seen. Remainder of the endometrial stripe is somewhat thickened and heterogeneous. Spontaneous abort ion/ in progress is not excluded. Clinical correlation required. Continued follow-up with ser ial beta hCG, and repeat ultrasound as warranted, is advised. Reviewed, dictated and finalized at location . Impression: Possible early intrauterine gestational sac with average sac diameter 4 mm. No pole or yolk sac seen. Remainder of the endometrial stripe is somewhat th ickened and heterogeneous. Spontaneous / in progress is not exc luded. Clinical correlation required. Continued follow-up with serial beta hCG, and repeat ultrasound as warranted, is advised.
[2023-04-27] MEDS: RHO(D) IMMUNE GLOBULIN 300 MCG/2 ML SYRINGE IM (11:15)
== END 2023-04-25 10:36 | disposition home or self-care (01) ==
PROVIDERS: PCP Nurse Practitioner Family; Visit Provider Obstetrics & Gynecology Gynecology
DX: O26.851 Spotting complicating pregnancy, first trimester (principal)
CPT/HCPCS: 36415; 76801; 76817; 84702; 85461; 86850; 86900; 86901; 90384; 96372; J2790

== ENCOUNTER 2023-06-24 08:22 | Outpatient (RCR) | payer OTHER, SELFPAY ==
[2023-04-27 11:41] LABS: Beta HCG Quantitative 223.02 mIU/ML
[2023-05-04 12:39] LABS: Beta HCG Quantitative 16.49 mIU/ML
[2023-06-06 09:44] LABS: Beta HCG Quantitative < 2.39 mIU/ML
== END 2023-07-24 23:59 | disposition home or self-care (01) ==
LOC: ANHLAB 08:22
PROVIDERS: PCP Nurse Practitioner Family; Visit Provider Obstetrics & Gynecology Gynecology
DX: O26.851 Spotting complicating pregnancy, first trimester (principal); Z3A.00 Weeks of gestation of pregnancy not specified
CPT/HCPCS: 36415; 84702

== ENCOUNTER 2023-08-03 06:41 | Outpatient (RCR) | payer OTHER, SELFPAY ==
--- NOTE | ~2023-08-03 | US_ITS ---
Pelvic ultrasound. Clinical History: First trimester , vaginal spotting Technique: Realtime transabdominal and transvaginal scanning of the pelvis was performed. Color flow Doppler and Doppler spectral analysis were performed. Findings: The uterus is anteverted, and contains diamniotic, dichorionic twin intrauterine gestation. Fetus a demonstrates crown-rump length of 4.2 cm, consistent with estimated gestational age of 11 we eks 1 day. heart rate is 167 bpm. Fetus B demonstrates crown-rump length of 4.3 cm, consistent with estimated gestational age of 11 weeks 1 day, with heart rate of 157 bpm.. Neither ovary visualized. No adnexal mass seen. There is no evidence of free fluid in the cul de sac. Impression: Live twin intrauterine gestations, as detailed above, with estimated gestational ages in the range of 11 weeks 1 day. Reviewed, dictated and finalized at [facility]. Impression: Live twin intrauterine gestations, as detailed above, with estimated gestationa l ages in the range of 11 weeks 1 day. Impression: Live twin intrauterine gestations, as detailed above, with estimated gestationa l ages in the range of 11 weeks 1 day.
[2023-08-03] MEDS: RHO(D) IMMUNE GLOBULIN 300 MCG/2 ML SYRINGE IM (11:14)
== END 2023-08-03 06:42 | disposition home or self-care (01) ==
LOC: ANHIMG 06:41
PROVIDERS: PCP Nurse Practitioner Family; Visit Provider Obstetrics & Gynecology Gynecology
DX: Z29.13 Encounter for prophylactic Rho(D) immune globulin (principal); O26.851 Spotting complicating pregnancy, first trimester; O30.041 Twin pregnancy, dichorionic/diamniotic, first trimester; O26.21 Pregnancy care for patient with recurrent pregnancy loss, first trimester; O36.0110 Maternal care for anti-D [Rh] antibodies, first trimester, not applicable or unspecified; Z3A.00 Weeks of gestation of pregnancy not specified
CPT/HCPCS: 36415; 76801; 76802; 85461; 86850; 86880; 86900; 86901; 86902; 90384; 96372; J2790

== ENCOUNTER 2023-09-06 09:50 | Outpatient (CLI) | payer OTHER, SELFPAY ==
[2023-09-06 10:32] LABS: Basophils Percent Auto 0.5 % (0.2-1.2); Eosinophils Absolute Auto 0.1 K/mm3 (0-0.3); Eosinophils Percent Auto 2.2 % (0-4.4); Hematocrit 33.7 % (37.0-47.0); Hemoglobin 11.2 g/dL (12.0-15.0); Immature Granulocyte Absolute 0.04 K/mm3 (0.00-0.031); Immature Granulocyte Percent A 0.7 % (0-0.5); Lymphocytes Absolute Auto 1.53 K/mm3 (0.9-3.2); Lymphocytes Percent Auto 25.5 % (18.3-44.2); Mean Corpuscular HGB Conc 33.2 g/dl (32-36); Mean Corpuscular Hemoglobin 29.6 pg (26-34); Mean Corpuscular Volume 88.9 fl (80-100); Mean Platelet Volume 10.3 fl (7.4-10.4); Monocytes Absolute Auto 0.4 K/mm3 (0.1-0.6); Monocytes Percent Auto 7.2 % (2.6-8.5); Neutrophils Absolute Auto 3.8 K/mm3 (1.3-6.7); Neutrophils Percent Auto 63.9 % (45.5-73.1); Platelet Count Result 224 k/mm3 (150-375); Red Blood Count 3.79 M/mm3 (4.2-5.4); Red Cell Distribution Width 13.2 % (11.5-14.5)
[2023-09-06 10:42] LABS: Hemoglobin A1C 4.4 % (<5.7)
[2023-09-06 11:27] LABS: HIV 1/2 Ab P24 Ag Result Negative (Negative)
[2023-09-06 11:59] LABS: Hepatitis B Surface Antigen Negative (Negative); Rubella IgG Antibody 19.4 IU/ML
[2023-09-06 12:11] LABS: Vitamin D 25 Hydroxy 45.5 ng/mL
[2023-09-06 12:15] LABS: Hepatitis C Virus Antibody Negative (Negative)
[2023-09-06 15:45] LABS: Rapid Plasma Reagin Non-Reactive (NonReactive)
== END 2023-09-06 09:51 | disposition home or self-care (01) ==
LOC: ANHLAB 09:51
PROVIDERS: PCP Nurse Practitioner Family; Visit Provider Advanced Practice Midwife
DX: Z36.9 Encounter for antenatal screening, unspecified (principal)
CPT/HCPCS: 36415; 82306; 82728; 83036; 85025; 86592; 86703; 86762; 86803; 86850; 86880; 86902; 87340; G0432

== ENCOUNTER 2023-12-09 09:48 | Outpatient (RCR) | payer OTHER, SELFPAY ==
[2023-12-09 10:55] VITALS: BP 115/72; PULSE 102
== END 2024-03-08 23:59 | disposition home or self-care (01) ==
LOC: ANHOBOP 09:48
PROVIDERS: PCP Nurse Practitioner Family; Visit Provider Obstetrics & Gynecology Gynecology
DX: O36.8130 Decreased fetal movements, third trimester, not applicable or unspecified (principal); Z3A.28 28 weeks gestation of pregnancy
CPT/HCPCS: 59025

== ENCOUNTER 2023-12-19 08:32 | Outpatient (RCR) | payer OTHER, SELFPAY ==
[2023-12-19 09:11] LABS: Hematocrit 30.3 % (37.0-47.0); Hemoglobin 9.6 g/dL (12.0-15.0)
[2023-12-19 09:58] LABS: Vitamin D 25 Hydroxy 39.7 ng/mL
[2023-12-19 10:01] LABS: HIV 1/2 Ab P24 Ag Result Negative (Negative)
[2023-12-21] MEDS: RHO(D) IMMUNE GLOBULIN 300 MCG/2 ML SYRINGE IM (08:34)
== END 2024-03-18 23:59 | disposition home or self-care (01) ==
LOC: ANHLAB 08:32
PROVIDERS: PCP Nurse Practitioner Family; Visit Provider Obstetrics & Gynecology Gynecology
DX: Z11.4 Encounter for screening for human immunodeficiency virus [HIV] (principal); O36.0130 Maternal care for anti-D [Rh] antibodies, third trimester, not applicable or unspecified; Z3A.00 Weeks of gestation of pregnancy not specified
CPT/HCPCS: 36415; 82306; 85014; 85018; 85461; 86703; 86850; 86900; 86901; 90384; G0432; J2790

== ENCOUNTER 2024-01-24 04:55 | Inpatient (IN) | payer OTHER, SELFPAY ==
[2024-01-24] VITALS (78 sets, daily range): BP systolic 92–148; BP diastolic 55–96; PULSE 64–116; RESP 16–18; TEMP 36.3–37.2; O2SAT 97–100; BMI 30.6
[2024-01-24] MEDS: AMPICILLIN 2 GM/NS 100 ML 2 GM/100 ML BAG IVPB (05:40)
[2024-01-24] MEDS: LACTATED RINGERS 1,000 ML 125 ML IV CONT (05:40)
[2024-01-24 05:48] LABS: Basophils Percent Auto 0.4 % (0.2-1.2); Eosinophils Absolute Auto 0.1 K/mm3 (0-0.3); Eosinophils Percent Auto 1.9 % (0-4.4); Hematocrit 31.6 % (37.0-47.0); Hemoglobin 10.3 g/dL (12.0-15.0); Immature Granulocyte Absolute 0.05 K/mm3 (0.00-0.031); Immature Granulocyte Percent A 0.7 % (0-0.5); Lymphocytes Absolute Auto 2.05 K/mm3 (0.9-3.2); Lymphocytes Percent Auto 29.5 % (18.3-44.2); Mean Corpuscular HGB Conc 32.6 g/dl (32-36); Mean Corpuscular Hemoglobin 26.8 pg (26-34); Mean Corpuscular Volume 82.3 fl (80-100); Mean Platelet Volume 11.4 fl (7.4-10.4); Monocytes Absolute Auto 0.6 K/mm3 (0.1-0.6); Neutrophils Absolute Auto 4.1 K/mm3 (1.3-6.7); Neutrophils Percent Auto 59.5 % (45.5-73.1); Platelet Count Result 187 k/mm3 (150-375); Red Blood Count 3.84 M/mm3 (4.2-5.4); Red Cell Distribution Width 13.6 % (11.5-14.5)
--- NOTE | 2024-01-24 06:27 | WPDANESEPP ---
Anes - Eval Pre Procedure Procedure: labor epidural Date/Time: 01/24/24 06:27 Surgeon: tony Preop Diagnosis: pain during labor Pre Op Diagnosis: Leaking Patient Data Age: 33 Gender: F Height: 1.63 m Weight: 80.9 kg Last Vital Signs Pulse 80 01/24/24 06:00 BP 127/77 01/24/24 06:00 Pulse Ox 98 01/24/24 06:24 O2 Del Method Room Air 01/24/24 06:06 Allergies Allergy/AdvReac Type Severity Reaction Status Date / Time No Known Allergies Allergy Verified 01/06/24 10:10 Home Medications Medication Instructions Recorded Confirmed Type ergocalciferol (vitamin D2) 1,250 1,250 mcg PO DAILY 01/26/21 01/06/24 History mcg (50,000 unit) capsule montelukast 10 mg tablet 10 mg PO DAILY 01/26/21 01/06/24 History vitamins no.144-folic 1 tablet PO DAILY 01/26/21 01/06/24 History acid 400 mcg chewable tablet () Laboratory Tests 01/24/24 05:40 WBC 7.0 K/mm3 (4.5-10.0) RBC 3.84 L M/mm3 (4.2-5.4) Hgb 10.3 L g/dL (12.0-15.0) Hct 31.6 L % (37.0-47.0) MCV 82.3 fl (80-100) MCH 26.8 pg (26-34) MCHC 32.6 g/dl (32-36) RDW 13.6 % (11.5-14.5) Plt Count 187 k/mm3 (150-375) MPV 11.4 H fl (7.4-10.4) Immature Gran % (Auto) 0.7 H % (0-0.5) Neut % (Auto) 59.5 % (45.5-73.1) Lymph % (Auto) 29.5 % (18.3-44.2) [place] % (Auto) 8.0 % (2.6-8.5) Eos % (Auto) 1.9 % (0-4.4) Baso % (Auto) 0.4 % (0.2-1.2) Lymph # (Auto) 2.05 K/mm3 (0.9-3.2) [place] # (Auto) 0.6 K/mm3 (0.1-0.6) Eos # (Auto) 0.1 K/mm3 (0-0.3) Baso # (Auto) 0.0 K/mm3 (0.0-0.1) Abs Immat Gran (auto) 0.05 H K/mm3 (0.00-0.031) Absolute Neuts (auto) 4.1 K/mm3 (1.3-6.7) Absolute Nucleated RBC 0.000 K/mm3 (0.0-0.012) Nucleated RBC % 0.0 % (0.0-0.2) RPR Pending Patient hx anesthesia problems: none Family hx anesthesia problems: none Results Review: All pre-operative results and documents have been reviewed as part of the pre-operative evaluation. [facility] Past Medical History Medical History (Updated 12/26/23 @ 10:27 by Wander Florez PharmD) (normal spontaneous vaginal delivery) Family History Family History (Updated 01/26/21 @ 01:57 by Pinky Ortiz RN) Other No known health problems Social History Social History Smoking status: Former smoker Second hand tobacco smoke exposure: No Substance use: never Do You Feel Safe in your Home?: Yes Lack of Transportation: No Lack of Food: Never True Current Housing: I Have Housing Concerned About Future Housing: No Difficulty Paying Gas/Electric Bills: No Difficulty Paying for Meds: No Currently Unemployed: No Education: Associate Degree Difficulty w/ Childcare or Family Care: No Gender identity (if verbalized by the patient): Female Spiritual care concerns: No Exam Day of Procedure 01/24/24 06:27
--- NOTE | 2024-01-24 06:31 | LDADM ---
This patient, Kayleigh Wiseman, was admitted to Labor/Delivery/Recovery 102 on 01/24/24 at 05:24. Plans for labor, pain management and were discussed with patient. Patient/family oriented to hospital policies and general routines including ID bracelet, bed and alarms, visiting hours, pain management, procedures, bathroom and other care routines, personal items, smoking policy, room service/diet and guest tray routines, infant security routines, and visiting hours. Patient/Family are encouraged to report perceived risks to care and to ask questions if they do not understand what they are told or what they should do. See [facility]BIX for further documentation.
--- NOTE | 2024-01-24 07:44 | WPDOBADMIT ---
Obstetrics - Admit Note Admission Note: record reviewed. No pertinent additions to the history and/or any subsequent changes in the physical findings that are not consistent with the expected course of the were found. Additions to the history and/or subsequent changes in the physical findings follow. Here at 35 4/7 wks with SROM twin A 3 cm on arrival and now 6/100/-2 Bedside u/s vtx/vtx oblique with vertex of B on maternal right. FHTs category I x 2 Consented for vaginal and agrees to breech delivery of twin B if needed and stable. Aware may need csection for twin B.
[2024-01-24] MEDS: AMPICILLIN 1 GM/NS 50 ML 1 GM/50 ML BAG IVPB (09:34)
[2024-01-24] MEDS: OXYTOCIN 10 UNITS/ML VIAL 30 UNITS IV CONT (10:10)
--- NOTE | 2024-01-24 10:21 | PM.OBPRVD ---
OB - Vaginal Delivery Note Procedure Delivery date: 01/24/24 Events: Premature Rupture of Membranes and Other (DI/DI twins) Induction method: None Delivery monitor: External FHT and External Uterine Route of delivery: (twins vtx/vtx) Episiotomy description: None Laceration Description: Perineal - 2nd Degree Delivery repair: vicryl (3-0) Specimen: Yes (placentas) Quantitative Blood Loss (ml): 250 Anesthesia type: Epidural Disposition: Floor Complications: No immediate complications Baby Date of : 01/24/24 Weeks of gestation at delivery: 35 (35 4/7) Infant gender: Female Weight (pounds): 6 Weight (ounces): 7 presentation: vertex position: Right Occiput Anterior Placenta delivery description: Spontaneous (after twin B) Cord Vessel Description: 2 Vessels and Nuchal Cord (x 2 tight delivered through) score one minute: 7 score five minutes: 9 Twins 2: Date of : 01/24/24 Weeks of gestation at delivery: 35 (35 4/7) Infant gender: Male Weight (pounds): 5 Weight (ounces): 13 presentation: vertex position: Right Occiput Anterior Placental delivery description: Spontaneous Cord Vessel Description: 3 Vessels score one minute: 8 score five minutes: 9 Narrative: After twin A delivered, Twin B vertex in RLQ. Maternal pushing while guiding vertex internally brought vertex midline and into pelvis. AROM when past cervix. Clear fluid.
--- NOTE | 2024-01-24 10:25 | PM.OBDSVD ---
DS: Admitting Diagnosis Discharge Date 01/26/2024 <Gabe oHrn MD - Last Filed: 01/26/24 06:50> Admitting Diagnosis IUP 35 4/7 wks with Di/Di twins PPROM twin A with labor <Abeba Hart MD - Last Filed: 01/28/24 11:21> DS: Discharge Diagnosis Discharge Diagnosis (1) Dichorionic diamniotic twin gestation: Code(s): O30.049 - Twin , dichorionic/diamniotic, unspecified trimester <Abeba Hart MD - Last Filed: 01/28/24 11:21> Status: Acute <Abeba Hart MD - Last Filed: 01/28/24 11:21> (2) (normal spontaneous vaginal delivery): Code(s): O80 - Encounter for full-term uncomplicated delivery <Abeba Hart MD - Last Filed: 01/28/24 11:21> Status: Acute <Abeba Hart MD - Last Filed: 01/28/24 11:21> Assessment and Plan: Vertex/vertex twin vaginal delivery <Abeba Hart MD - Last Filed: 01/28/24 11:21> OB - DS: Summary OB Procedures : Ultrasound <Abeba Hart MD - Last Filed: 01/28/24 11:21> OB Procedures Intrapartum: Spontaneous Vag Delivery (x 2) <Abeba Hart MD - Last Filed: 01/28/24 11:21> OB Procedures: : None <Abeba Hart MD - Last Filed: 01/28/24 11:21> Peripartum Data Infant Delivery Method: Natural Vaginal (x 2) <Abeba Hart MD - Last Filed: 01/28/24 11:21> Laceration Description: Perineal - 2nd Degree <Abeba Hart MD - Last Filed: 01/28/24 11:21> Episiotomy description: None <Abeba Hart MD - Last Filed: 01/28/24 11:21> complications: none <Abeba Hart MD - Last Filed: 01/28/24 11:21> Status at Discharge Functional status at discharge: independent ambulation <Abeba Hart MD - Last Filed: 01/28/24 11:21> Overall status at discharge: patient is progressing back to baseline <Abeba Hart MD - Last Filed: 01/28/24 11:21> Time Spent with Patient Time attestation: Total time spent providing and/or coordinating discharge services: <Abeba Hart MD - Last Filed: 01/28/24 11:21> DS: Data Data Completed and Pending Labs on day of discharge: Labs from last 24 hours 01/24/24 05:40 WBC 7.0 RBC 3.84 L Hgb 10.3 L Hct 31.6 L MCV 82.3 MCH 26.8 MCHC 32.6 RDW 13.6 Plt Count 187 MPV 11.4 H Immature Gran % (Auto) 0.7 H Neut % (Auto) 59.5 Lymph % (Auto) 29.5 [place] % (Auto) 8.0 Eos % (Auto) 1.9 Baso % (Auto) 0.4 Lymph # (Auto) 2.05 [place] # (Auto) 0.6 Eos # (Auto) 0.1 Baso # (Auto) 0.0 Abs Immat Gran (auto) 0.05 H Absolute Neuts (auto) 4.1 Absolute Nucleated RBC 0.000 Nucleated RBC % 0.0 RPR Pending Blood Type B Negative Antibody Screen Positive Antibody Identification Pending Antigen Identification Pending ISSAC, IgG Interpret Not Performed ISSAC, Poly Interpret Negative ISSAC, Complement Interp Pending <Abeba Hart MD - Last Filed: 01/28/24 11:21> Discharge Plan Discharge Attending physician on discharge: Abeba Hart <Abeba Hart MD - Last Filed: 01/28/24 11:21> Abeba Hart <Gabe Horn MD - Last Filed: 01/26/24 06:50> Consulting providers: Salma Phan; Darline Williamson <Abeba Hart MD - Last Filed: 01/28/24 11:21> Discharging Clinician: Abeba Hart <Abeba Hart MD - Last Filed: 01/28/24 11:21> Abeba Hart <Gabe Horn MD - Last Filed: 01/26/24 06:50> Anticipated Discharge Date/Time: 01/26/24 10:27 <Abeba Hart MD - Last Filed: 01/28/24 11:21> Patient Disposition: Home, Self-Care <Abeba Hart MD - Last Filed: 01/28/24 11:21> Activity: may shower and pelvic rest <Abeba Hart MD - Last Filed: 01/28/24 11:21> may shower and pelvic rest <Gabe Hood
[2024-01-24] MEDS: WITCH HAZEL 40 PADS 1 PAD TOPICAL (12:44)
[2024-01-24] MEDS: BENZOCAINE 20% AER SPR (*SP) 56 GM CAN 1 SPRAY TOPICAL (12:44)
[2024-01-24 13:05] LABS: Rapid Plasma Reagin Non-Reactive (NonReactive)
--- NOTE | 2024-01-24 15:15 | OBPPTRN ---
1250 Patient transferred to post room #277 via W/C. Support person present. Oriented to unit, room, information board, rooming in, admission packet and security measures. Patient verbalizes understanding.
[2024-01-24] MEDS: DOCUSATE SODIUM 100 MG CAPSULE PO (16:24)
[2024-01-24] MEDS: IBUPROFEN 600 MG TABLET PO (16:24)
--- NOTE | 2024-01-24 16:34 | PC.NURSE ---
[id number] Introductions were made, then consulted with patient to assess needs related to . Mother led the conversation with her?plans to feed?her infants and the?experience so far. Encouraged understanding of the benefits of skin to skin (demonstrating unwrapping and placing upright on her chest), stimulating with massage touch, changing positions to encourage wakefulness, how to watch for early feeding cues, responsive feeding, feeding on demand (aiming for 8-12 times in 24 hours, about every 2-3 hours), milk production, hand expression, building/maintaining a milk supply, duration of feeding, signs of adequate intake/output and how to record on the feeding sheet. Mother works well with her infant with encouragement and education. Both infants were undressed and void and stool diapers changed. Infant B was spoon fed 1/2 tsp of colostrum that mother hand expressed. A was spoon fed 1/4 tsp with a spoon. Mother independently latched Infant B to the left breast in cradle position. Education given to the mother of how to visualize the suckling (with good rocking jaw motion), swallows (dropping of the lower jaw) and how to listen for drinking at the breast (the ka sound) which demonstrated well. was able to maintain latch without pain to mother protecting the nipple with optimal positioning and latching. Mother voiced understanding of skin to skin, stimulating with massage touch, responsive feedings, hand expressed colostrum, talking to to encourage if it has been 2 -2.5 hours since the start of the last , to call if does not latch, or if there is discomfort with . Resources used for education were facilitated with the tool/mom and baby guide. Inpatient/outpatient resources provided with name written on the communication board. Parents voiced understanding of information, demonstrated learning and will call if there is a request for assistance. Primary RN was present during most of the consult.
[2024-01-24] MEDS: ACETAMINOPHEN 325 MG TABLET 650 MG PO (22:28)
[2024-01-25 04:49] VITALS: BP 138/89; PULSE 64; RESP 16; TEMP 36.5; O2SAT 99
[2024-01-25] MEDS: IBUPROFEN 600 MG TABLET PO ×3 (05:01→23:12)
[2024-01-25 05:18] LABS: Hematocrit 29.8 % (37.0-47.0); Hemoglobin 9.6 g/dL (12.0-15.0)
--- NOTE | 2024-01-25 07:26 | WPDANLDPN2 ---
Anes-Prog Note L&D Date/Time: 01/25/24 07:26 Comfortable throughout: labor and delivery Neuraxial method: epidural Epidural/Spinal procedure site: clean & non-tender Neuro status: Neuro function grossly intact. Cardiovascular status: normal Respiratory status: normal Airway patency: baseline Mental status: baseline Post-Op hydration status: normal Vital Signs: Last Vital Signs Temp 36.5 C 01/25/24 04:49 Pulse 64 01/25/24 04:49 Resp 16 01/25/24 04:49 BP 138/89 01/25/24 04:49 Pulse Ox 99 01/25/24 04:49 O2 Del Method Room Air 01/24/24 15:55 Pain score (VAS): 10/26 I/O: Intake & Output 01/24/24 01/24/24 01/25/24 15:59 23:59 07:59 Output Total 440 Balance -440 Post-procedural complaints: none Patient feedback: Patient satisfied with anesthetic care.
--- NOTE | 2024-01-25 07:36 | PM.OBPNVD ---
OB - PN: Subj Subjective Date/time seen: 01/25/24 07:36 Patient comments: no complaints and pain well controlled baby status: doing well (daughter with low sugars ) and nursing well OB - PN: Obj Data Labs 01/25/24 04:54 Labs: Laboratory Results - last 24 hr 01/24/24 01/25/24 05:40 04:54 Hgb 9.6 L Hct 29.8 L RPR Non-reactive ISSAC, IgG Interpret Not Performed ISSAC, Poly Interpret Negative OB - PN A/P Plan day: 1 Plan: routine care Time Spent With Patient Time: Total time spent is greater than 50% in coordination of care (as documented) at patient's floor/unit and/or counseling patient: Exam : Bimanual exam- vagina & uterus: other (Uterus firm, nt @U)
[2024-01-25 07:55] VITALS: BP 132/79; PULSE 69; RESP 16; TEMP 36.5; O2SAT 100
[2024-01-25 08:00] VITALS: PULSE 69; RESP 16; O2SAT 100
--- NOTE | 2024-01-25 09:16 | PC.NURSE ---
[id number] Purposefully rounded to assess for needs when taking infants back to the parents. Mother verbalizes she is able to independently latch with appropriate positioning and alignment. She denies any nipple discomfort and is responsively . Infant is currently meeting outcomes for weight, output, jaundice, and with the rare exception of supplementation related to a low blood sugar. Infants blood sugars were checked and are appropriate for age at this time. Mother independently latched baby girl A to the right breast. Father of the babies is holding baby boy B. Encouraged mother to aim for not going past 3 hours to feed her infants, hand expression to encourage milk supply, to wake infants to breastfeed and breast switching. Mother states she has not had to hand express to wake infants up to breastfeed. Encouraged parents to call for assistance if her doesn?t latch, waking infants to breastfeed, pain with latching, questions or concerns. Mother declines any additional assistance or education at this time and voiced understanding of information shared. Reported to the Primary RN.
[2024-01-25] MEDS: POLYSACCHARIDE IRON COMPLEX 150 MG CAPSULE PO ×2 (09:17→17:08)
[2024-01-25] MEDS: DOCUSATE SODIUM 100 MG CAPSULE PO ×2 (09:17→17:08)
[2024-01-25] MEDS: MULTIVIT/MIN/PREN/FOL AC/IRON TABLET 1 TAB PO (09:18)
[2024-01-25] MEDS: ACETAMINOPHEN 325 MG TABLET 650 MG PO (10:17)
--- NOTE | 2024-01-25 15:24 | PC.NURSE ---
[id number] Purposefully rounded to assess for needs. Mother is relaxing with baby B resting on her chest/breast. Father of baby is dozing with infant baby A swaddled in her bassinet. Mother is comfortable, confident and has been independently latching her infants Baby A about 20 minutes and Baby B 15 minutes on demand. Encouraged mother to continue to feed on demand about every 2-3 hours, resting when able and we discussed mother considering feeding both at the same time tomorrow. Reported to the Primary RN.
[2024-01-25 22:45] VITALS: BP 121/69; PULSE 59; RESP 18; TEMP 36; O2SAT 99
--- NOTE | 2024-01-26 06:46 | PM.OBPNVD ---
OB - PN: Subj Subjective Date/time seen: 01/26/24 06:46 Patient comments: no complaints and pain well controlled baby status: doing well OB - PN: Obj Data Labs 01/25/24 04:54 Labs: Laboratory Results - last 24 hr 01/26/24 04:43 Blood Type B Negative Antibody Screen TNP OB - PN A/P Plan day: 2 Plan: routine care, discharge home and follow up 6 weeks Time Spent With Patient Time: Total time spent is greater than 50% in coordination of care (as documented) at patient's floor/unit and/or counseling patient: Time with patient: less than 15 minutes Exam Const: General: cooperative, healthy appearing and comfortable Nutritional Appearance: average body habitus Orientation/consciousness: oriented to person, oriented to place and oriented to time Resp: Effort & Inspection: normal respiratory effort Cardio: Rate: regular rate Rhythm: regular rhythm Heart sounds: S1 normal heart sound present and S2 normal heart sound present
[2024-01-26 07:30] VITALS: BP 130/84; PULSE 61; RESP 18; TEMP 37; O2SAT 97
[2024-01-26] MEDS: MULTIVIT/MIN/PREN/FOL AC/IRON TABLET 1 TAB PO (08:16)
[2024-01-26] MEDS: POLYSACCHARIDE IRON COMPLEX 150 MG CAPSULE PO ×2 (08:16→17:15)
[2024-01-26] MEDS: DOCUSATE SODIUM 100 MG CAPSULE PO ×2 (08:16→17:14)
[2024-01-26] MEDS: IBUPROFEN 600 MG TABLET PO ×2 (08:16→17:14)
[2024-01-26] MEDS: RHO(D) IMMUNE GLOBULIN 300 MCG/2 ML SYRINGE IM (10:57)
--- NOTE | 2024-01-26 12:41 | PC.NURSE ---
[id number] Purposefully rounded to assess for needs. Mother shared that the infant will need to stay one more night related to their weight loss. We discussed continuing to practice skin to skin, frequent feedings, and we can do weighted feedings today to monitor their intake, then supplement as needed. Mother voiced understanding and will call for weights before and after feedings. baby B pre-feed weight is 2414g (5-5.1) Post-feed weight is 2423g (5-5.3) It was recommended to supplement with formula as infant transferred 9mls in a 15 min session. Demonstrated paced bottle feeding to the parents. Infants total intake = 21mls. baby A pre-feed weight is 2705g (5-15.4) Post-feed weight is 2726g (6-0) Mother is not planning on supplementing at this time. Infants intake = 21mls (based on 1gm=1ml) Wet diaper output weight -17mls Educated parents that one feeding doesn't share the total 24 hour intake volume only this feeding intake. Suggested to mother to possible practice another position with baby B as she shared that he doesn't latch as well as his sister infant baby A. Nipples are not misshaped after any of the feedings and mother denies pain. It is possible that infant baby B doesn't transfer milk as well as infant baby A. Offered parents the opportunity to do weighted feeds at the next feeding, take a nap, eat lunch, and call if they need anything. Encouraged frequent . Parents voiced understanding. Reported to the Primary RN.
--- NOTE | 2024-01-26 15:09 | PC.NURSE ---
Pre-feed (2416g) and post-feed (2426g) weights were completed with baby B. Reported to RN LC that mother will be supplementing with paced bottle feeding due to transferring 10mls of breast milk.
[2024-01-27 10:15] VITALS: BP 120/72; PULSE 82; RESP 18; TEMP 36.5; O2SAT 100
== END 2024-01-26 17:50 | disposition home or self-care (01) | DRG 560 ==
LOC: ANHLDR 10:27 → ANHOB2 01-26 13:09 → ANHLDR 01-27 08:26 → ANHOB2 01-27 08:26
PROVIDERS: Advanced Practice Midwife; Admitting Provider Obstetrics & Gynecology Gynecology; Visit Provider Obstetrics & Gynecology
DX: O42.013 Preterm premature rupture of membranes, onset of labor within 24 hours of rupture, third trimester (principal); O30.043 Twin pregnancy, dichorionic/diamniotic, third trimester; Z37.2 Twins, both liveborn; Z3A.35 35 weeks gestation of pregnancy; O69.81X1 Labor and delivery complicated by cord around neck, without compression, fetus 1; O70.1 Second degree perineal laceration during delivery; O60.14X2 Preterm labor third trimester with preterm delivery third trimester, fetus 2; O60.14X1 Preterm labor third trimester with preterm delivery third trimester, fetus 1
CPT/HCPCS: 36415; 84112; 85014; 85018; 85025; 85461; 86592; 86850; 86870; 86880; 86900; 86901; 86902; 86971; 88307; 90384; A9270; J0290; J2590; J2790; J2795; J7120